=== PATIENT | male | born 1950 | race Caucasian/White ===

== ENCOUNTER 2020-10-13 11:35 | Outpatient (CLI) | payer OTHER ==
[2020-10-14 04:20] LABS: SARS-CoV-2 PCR by NAA Not Detected (NotDetected)
== END 2020-10-13 11:36 | disposition home or self-care (01) ==
LOC: CSHLAB 11:35
PROVIDERS: ATTEND Internal Medicine Gastroenterology
DX: Z20.822 Contact with and (suspected) exposure to COVID-19 (principal); K63.5 Polyp of colon
CPT/HCPCS: 87635; U0003; U0005

== ENCOUNTER 2020-10-16 10:19 | Day surgery (SDC) | payer OTHER ==
[2020-10-15 13:35] VITALS: BMI 26.1
[2020-10-16] MEDS ORDERED: Lidocaine 1% MPF 2 ML VIAL ONE (10:38)
[2020-10-16] MEDS ORDERED: PROPOFOL 40 ML ONE (11:50)
[2020-10-16] MEDS ORDERED: Lidocaine 2% MPF 10 ML AMP (For Epidural Use) ONE (11:51)
[2020-10-16] MEDS ORDERED: Glycopyrrolate 0.2 MG/ML 5 ML SYRINGE ONE (12:10)
== END 2020-10-16 13:30 | disposition home or self-care (01) ==
LOC: CSHSDC 10:19
PROVIDERS: ATTEND Internal Medicine Gastroenterology
DX: Z12.11 Encounter for screening for malignant neoplasm of colon (principal); K63.5 Polyp of colon; K57.30 Diverticulosis of large intestine without perforation or abscess without bleeding; K64.9 Unspecified hemorrhoids
CPT/HCPCS: 88305; J2001; J2704

== ENCOUNTER 2022-11-11 09:37 | Day surgery (SDC) | payer OTHER ==
[2022-11-09 10:11] VITALS: BMI 26.6
[2022-11-11] MEDS ORDERED: PROPOFOL 20 ML ONE ×2 (10:53)
[2022-11-11] MEDS ORDERED: Lidocaine 1% PF 5 ML VIAL ONE (10:54)
== END 2022-11-11 12:24 | disposition home or self-care (01) ==
LOC: CSHSDC 09:37
PROVIDERS: ATTEND Internal Medicine Gastroenterology
PROC: 0DBN8ZZ Excision of Sigmoid Colon, Via Natural or Artificial Opening Endoscopic (ICD-10-PCS; principal; 2022-11-11)
DX: Z12.11 Encounter for screening for malignant neoplasm of colon (principal); D12.5 Benign neoplasm of sigmoid colon; K63.5 Polyp of colon; K57.30 Diverticulosis of large intestine without perforation or abscess without bleeding; I10 Essential (primary) hypertension; E78.5 Hyperlipidemia, unspecified; I25.10 Atherosclerotic heart disease of native coronary artery without angina pectoris; E03.9 Hypothyroidism, unspecified; Z79.899 Other long term (current) drug therapy
CPT/HCPCS: 88305; J2704

== ENCOUNTER 2023-08-29 20:40 | Inpatient (IN) | payer OTHER, MEDICARE ==
[2023-08-29 22:32] VITALS: BMI 19.8
[2023-08-30] MEDS ORDERED: Ondansetron PF 4 MG/2 ML Vial IVP PRN (00:32)
[2023-08-30] MEDS ORDERED: Ondansetron ODT 4 MG TAB PO PRN (00:32)
[2023-08-30] MEDS ORDERED: Acetaminophen 325 MG TAB PO PRN (00:32)
[2023-08-30] MEDS ORDERED: Acetaminophen 650 MG Suppository PR PRN (00:32)
[2023-08-30] MEDS: Sodium Chloride 0.9% 1,000 ML IV SCH (03:49)
[2023-08-30 04:19] LABS: #Monocytes 0.7 10x3/uL (0.0-1.1); #Neutrophils 11.4 10x3/uL (1.5-8.4); %Basophils 0.1 % (0.0-2.0); %Monocytes 4.9 % (0.0-10.0); %Neutrophils 84.4 % (40.0-75.0); Hemoglobin 11.5 g/dL (13.5-17.5); Mean Corpuscular HGB CONC 34.8 g/dL (32.0-36.0); Mean Corpuscular Hemoglobin 29.9 pg (27.0-33.0); Mean Corpuscular Volume 85.9 fl (81.2-95.1); Platelet Count 113 10x3/uL (150-450); RBC Distribution Width 15.2 % (11.5-14.5); Red Blood Cell (RBC) Count 3.84 10x6/uL (4.32-5.72); White Blood Cell (WBC) Count 13.5 10x3/uL (3.5-10.5)
[2023-08-30 04:43] LABS: Anion Gap 14 mmol/L (10-20); BUN (Urea Nitrogen) 48 mg/dL (8.4-25.7); Calc. Creatinine Clearance 40 mL/min (70-130); Calcium 8.7 mg/dL (7.8-10.44); Carbon Dioxide 26 mmol/L (23-31); Chloride 104 mmol/L (98-107); Estimated GFR 53; Glucose 135 mg/dL (83-110); Potassium 3.8 mmol/L (3.5-5.1); Sodium 140 mmol/L (136-145)
[2023-08-30 04:43] LABS: Magnesium 2.1 mg/dL (1.6-2.6)
[2023-08-30 05:08] LABS: Platelet Adequacy Comment Appears Decreased; RBC Morph Comment Within Normal Limits
[2023-08-30] MEDS: Pantoprazole 40 MG VIAL IVP SCH (08:43)
[2023-08-30] MEDS ORDERED: Pantoprazole 40 MG VIAL IVP SCH (09:00)
[2023-08-30 09:10] LABS: INR-International Normal Ratio 1.1; PTT 29.7 sec (22.0-33.0); Prothrombin Time 11.4 sec (9.5-12.1)
[2023-08-30] MEDS: Dronedarone HCl 400 MG TAB PO SCH (09:23)
[2023-08-30] MEDS: Losartan 50 MG TAB PO SCH (09:23)
[2023-08-30] MEDS: Levothyroxine Sodium 50 MCG TAB PO SCH (09:23)
[2023-08-30] MEDS: FLU VACC QS2023(65UP)/MF59C/PF 60 MCG/0.5 ML SYRINGE IM ONE (09:23)
[2023-08-30] MEDS: Terazosin HCl 5 MG CAP PO SCH ×2 (10:24→21:44)
[2023-08-30 13:02] LABS: Troponin I 0.154 ng/mL (< 0.028)
[2023-08-30 16:54] LABS: Hemoglobin 12.2 g/dL (13.5-17.5); Platelet Count 118 10x3/uL (150-450)
[2023-08-31 03:44] LABS: #Eosinphils 0.1 10x3/uL (0.0-0.5); #Monocytes 0.5 10x3/uL (0.0-1.1); #Neutrophils 6.3 10x3/uL (1.5-8.4); %Basophils 0.3 % (0.0-2.0); %Eosinophils 0.5 % (0.0-6.0); %Monocytes 5.8 % (0.0-10.0); %Neutrophils 69.1 % (40.0-75.0); Hematocrit 31.5 % (38.8-50.0); Hemoglobin 10.7 g/dL (13.5-17.5); Mean Corpuscular Hemoglobin 29.9 pg (27.0-33.0); Mean Platelet Volume 10.9 fl (7.4-10.4); Platelet Count 108 10x3/uL (150-450); RBC Distribution Width 14.9 % (11.5-14.5); Red Blood Cell (RBC) Count 3.58 10x6/uL (4.32-5.72); White Blood Cell (WBC) Count 9.1 10x3/uL (3.5-10.5)
[2023-08-31 04:01] LABS: Anion Gap 10 mmol/L (10-20); BUN (Urea Nitrogen) 32 mg/dL (8.4-25.7); Calc. Creatinine Clearance 50 mL/min (70-130); Calcium 8.5 mg/dL (7.8-10.44); Carbon Dioxide 24 mmol/L (23-31); Chloride 110 mmol/L (98-107); Estimated GFR 70; Glucose 99 mg/dL (83-110); Potassium 3.5 mmol/L (3.5-5.1); Sodium 140 mmol/L (136-145)
[2023-08-31 05:11] LABS: Ovalocytes SLIGHT = 2-5 cells (100X) (0-1/hpf); Platelet Adequacy Comment Appears Decreased
[2023-08-31] MEDS: Levothyroxine Sodium 50 MCG TAB PO SCH (06:03)
[2023-08-31] MEDS: Losartan 50 MG TAB PO SCH (09:30)
[2023-08-31] MEDS ORDERED: PROPOFOL 20 ML ONE (14:11)
[2023-08-31] MEDS ORDERED: Lidocaine 1% PF 5 ML VIAL ONE (14:11)
[2023-08-31] MEDS ORDERED: fentaNYL 50 mcg/mL 1 mL Vial ONE (14:16)
[2023-08-31 16:17] VITALS: TEMP 97.8
[2023-08-31 16:23] VITALS: BP 187/78
== END 2023-08-31 16:57 | disposition home or self-care (01) | DRG 369 ==
LOC: CSHTELE 21:39 → OBSVTOIN 08-31 11:56
PROVIDERS: ADMIT Student in an Organized Health Care Education/Training Program; ATTEND Family Medicine
PROC: 0DB98ZX Excision of Duodenum, Via Natural or Artificial Opening Endoscopic, Diagnostic (ICD-10-PCS; principal; 2023-08-31)
DX: K21.01 Gastro-esophageal reflux disease with esophagitis, with bleeding (principal); D62 Acute posthemorrhagic anemia; N17.9 Acute kidney failure, unspecified; K86.3 Pseudocyst of pancreas; E78.5 Hyperlipidemia, unspecified; N40.0 Benign prostatic hyperplasia without lower urinary tract symptoms; E03.9 Hypothyroidism, unspecified; M06.9 Rheumatoid arthritis, unspecified; R86.0 Abnormal level of enzymes in specimens from male genital organs; R77.8 Other specified abnormalities of plasma proteins; I45.81 Long QT syndrome; K80.20 Calculus of gallbladder without cholecystitis without obstruction; I48.0 Paroxysmal atrial fibrillation; Z79.899 Other long term (current) drug therapy; Z79.01 Long term (current) use of anticoagulants; Z90.49 Acquired absence of other specified parts of digestive tract; Z79.890 Hormone replacement therapy
CPT/HCPCS: 36415; 80048; 83690; 83735; 84484; 85025; 85384; 85610; 85730; 86850; 86900; 86901; 88305; 93005; 93010; C9113; J2704; J3010; J7050